=== PATIENT | female | born 1955 | race Caucasian/White ===

== ENCOUNTER 2023-07-28 06:44 | Day surgery (SDC) | payer MEDICARE ==
[2023-07-28] VITALS (12 sets, daily range): BP systolic 126–166; BP diastolic 62–81; PULSE 71–88; RESP 12–16
[~2023-07-28] VITALS: Ht 165.1 cm; Wt 77.3 kg
[~2023-07-28 06:44] MED LIST: 0.9%NACL 1000ML 1,000 ML IV ONE; AMIT50TA3 PO; AMLO-257 PO; ASPI-1026 PO; BACL20TA PO; CARB100C9 PO; FAMO20TA8 PO; FURO40TA5 PO; HYDR-4068 PO; METO-391 PO; PANT40TA54 PO; ROPI1TAB46 PO; ROPI2TAB53 PO; ROSU10TA28 PO; SUCR1TAB2 PO
[2023-07-28] MEDS ORDERED: ONDA22I IM (07:41)
[2023-07-28] MEDS ORDERED: HEPARIN PF LOCK 500 UNIT/5ML IV SCH (08:00)
[2023-07-28] MEDS ORDERED: PROPOFOL 10 MG/ML 20ML VIAL IV ONE (09:00)
== END 2023-07-28 10:38 | disposition home or self-care (01) ==
LOC: DAH 06:44 → ENDO 06:44
PROVIDERS: ATTEND Internal Medicine Gastroenterology
DX: K22.0 Achalasia of cardia (principal); K31.7 Polyp of stomach and duodenum; K29.70 Gastritis, unspecified, without bleeding; K20.90 Esophagitis, unspecified without bleeding; K22.89 Other specified disease of esophagus; I10 Essential (primary) hypertension; E78.2 Mixed hyperlipidemia; Z93.1 Gastrostomy status; Z82.49 Family history of ischemic heart disease and other diseases of the circulatory system; Z83.3 Family history of diabetes mellitus; Z82.3 Family history of stroke; Z80.1 Family history of malignant neoplasm of trachea, bronchus and lung; Z80.0 Family history of malignant neoplasm of digestive organs; Z88.1 Allergy status to other antibiotic agents; Z88.8 Allergy status to other drugs, medicaments and biological substances; Z79.1 Long term (current) use of non-steroidal anti-inflammatories (NSAID); Z79.82 Long term (current) use of aspirin; Z79.899 Other long term (current) drug therapy; Z90.49 Acquired absence of other specified parts of digestive tract; Z90.710 Acquired absence of both cervix and uterus; Z98.890 Other specified postprocedural states
CPT/HCPCS: 43251; 43239; J7030 ×2; J2704; A4620; A4215 ×2; A4223; A7002; A4222; A4221; A4663; A4606; J3490

== ENCOUNTER → 2024-05-18 | Outpatient (CLI) | payer MEDICARE ==
[~2024-05-18] MED LIST changes: -0.9%NACL 1000ML 1,000 ML IV ONE; +ONDA22I IM; +PREG200C PO; -ROSU10TA28 PO; +ROSU10TA72 PO; +ZOFRAN SL
[2024-05-18 16:03] LABS: BASOPHILS # (AUTO) 0.02 K/uL (0.00-0.20); BASOPHILS % (AUTO) 0.4 % (0.0-5.0); EOSINOPHILS # (AUTO) 0.12 K/uL (0.00-0.70); EOSINOPHILS % (AUTO) 2.3 % (0.0-8.0); HEMATOCRIT 34.8 % (36-48); IMMATURE GRANULOCYTE ABSOLUTE 0.02 K/uL (0-1); LYMPHOCYTES # (AUTO) 1.3 K/uL (1.0-4.8); LYMPHOCYTES % (AUTO) 25.1 % (21.0-51.0); MEAN CORPUSCULAR HEMOGLOBIN 28.3 pg (27.0-33.0); MEAN CORPUSCULAR HGB CONC 31.6 g/dL (32.0-36.0); MEAN CORPUSCULAR VOLUME 89.5 fL (79-99); MONOCYTES # (AUTO) 0.3 K/uL (0.1-1.0); MONOCYTES % (AUTO) 5.4 % (3.0-13.0); NEUTROPHILS # (AUTO) 3.4 K/uL (1.8-7.7); NEUTROPHILS % (AUTO) 66.4 % (40.0-77.0); PLATELET COUNT (AUTO) 236 K/uL (130-400); RED BLOOD CELL COUNT(AUTO) 3.89 MIL/uL (4.00-5.50); RED CELL DISTRIBUTION WIDTH 13.2 % (11.0-15.5); WHITE BLOOD COUNT (AUTO) 5.2 K/uL (4.8-10.8)
[2024-05-18 16:30] LABS: CREATININE 1.1 mg/dL (0.5-1.0); MAGNESIUM 1.9 mg/dL (1.80-2.40); POTASSIUM 4.2 mmol/L (3.5-5.1); THYROID STIMULATING HORMONE 0.89 uIU/mL (0.36-3.74)
== END | disposition home or self-care (01) ==
LOC: LAB 10:00
PROVIDERS: ATTEND Internal Medicine Cardiovascular Disease
DX: R00.2 Palpitations (principal); R55 Syncope and collapse
CPT/HCPCS: 36415; 80048; 83735; 84443; 85025

== ENCOUNTER 2024-08-08 08:44 | Day surgery (SDC) | payer MEDICARE ==
[2024-08-08] VITALS (12 sets, daily range): BP systolic 148–169; BP diastolic 67–87; PULSE 68–80; RESP 12–18; TEMP 97.4–98.1
[~2024-08-08] VITALS: Ht 165.1 cm; Wt 72.6 kg
[~2024-08-08 08:44] MED LIST changes: -AMLO-257 PO; -ASPI-1026 PO; -FAMO20TA8 PO; -ONDA22I IM; -ROSU10TA72 PO; -SUCR1TAB2 PO
[2024-08-08] MEDS: 0.9%NACL 1000ML 1,000 ML IV ONE (11:57)
[2024-08-08] MEDS ORDERED: proPOFol 10 MG/ML 20ML VIAL IV ONE ×2 (13:30→13:40)
== END 2024-08-08 15:02 ==
LOC: ENDO 08:44 → DAH 08:44 → ENDO 15:02
PROVIDERS: ATTEND Internal Medicine Gastroenterology
DX: K94.23 Gastrostomy malfunction (principal); K22.0 Achalasia of cardia; R13.10 Dysphagia, unspecified; K21.00 Gastro-esophageal reflux disease with esophagitis, without bleeding; K59.00 Constipation, unspecified; K64.9 Unspecified hemorrhoids; K22.89 Other specified disease of esophagus; K29.50 Unspecified chronic gastritis without bleeding; K31.84 Gastroparesis; E66.9 Obesity, unspecified; G24.1 Genetic torsion dystonia; I10 Essential (primary) hypertension; E78.2 Mixed hyperlipidemia; Z79.899 Other long term (current) drug therapy; Z68.26 Body mass index [BMI] 26.0-26.9, adult; Z88.1 Allergy status to other antibiotic agents; Z88.8 Allergy status to other drugs, medicaments and biological substances; Z98.890 Other specified postprocedural states; Z90.89 Acquired absence of other organs; Z90.710 Acquired absence of both cervix and uterus; Y83.8 Other surgical procedures as the cause of abnormal reaction of the patient, or of later complication, without mention of misadventure at the time of the procedure; Y92.89 Other specified places as the place of occurrence of the external cause
CPT/HCPCS: 43246; B4087; J7030 ×2; J2704 ×2; A4620; A4649; A4215; A4223; A7002; A4222; A4221; A4663; A4606; 44372; J3490